=== PATIENT | female | born 1970 | race Caucasian/White ===

== ENCOUNTER 2019-08-17 11:48 | Emergency (ER) | payer OTHER, SELFPAY ==
[2019-08-17] VITALS (13 sets, daily range): BP systolic 124–147; BP diastolic 75–94; PULSE 62–79; RESP 12–23; TEMP 36.7; O2SAT 99–100
--- NOTE | ~2019-08-17 | XR_ITS ---
EXAMINATION: XR chest 2V DATE: 08/17/2019 13:02 INDICATION: Left chest pain. TECHNIQUE: Frontal and lateral views of the chest were obtained. COMPARISON: Chest 2 views 12/30/2015 FINDINGS: The chest demonstrates clear lungs without pneumonia, pleural effusion, or pneumothorax. Th e heart size is normal. Surgical clips in the right upper quadrant are likely from cholecystectomy. T here is a surgical clip in right axilla. IMPRESSION: 1. No acute cardiopulmonary disease. Reviewed, dictated and finalized at location A.
--- NOTE | 2019-08-17 11:58 | ECG_ITS ---
Measurements Intervals Adin Rate: 73 P: 22 IL: 134 QRS: 6 QRSD: 89 T: 30 QT: 391 QTc: 433 Interpretive Statements SINUS RHYTHM LOW QRS VOLTAGE IN PRECORDIAL LEADS BASELINE WANDER- V1-V3 BORDERLINE ECG Electronically Signed On 08-17-2019 12:00:47 CDT by Osmar Vizcaino D.O.
[2019-08-17] MEDS: ASPIRIN 81 MG CHEWABLE TABLET 324 MG PO (12:04)
--- NOTE | 2019-08-17 12:06 | ED.CHESTPAIN ---
HPI - Chest Pain General Chief Complaint: Chest Pain Stated Complaint: chest pain/epigastric pain Time Seen by Provider: 08/17/19 11:54 Source: patient Mode of arrival: ambulatory Limitations: no limitations History of Present Illness HPI narrative: This is a 49 year old female that presents to the ER for chest pain x 1 week. Reports intermittent squeezing like pain under the left rib. Reports today the pain became more constant. Associated with some mild nausea. Reports history of GERD, denies history of any heart problems. She was seen by her PCP today and sent here for further evaluation. Denies fever, shortness of breath, vomiting, diarrhea, or dysuria. Related Data Allergies Allergy/AdvReac Type Severity Reaction Status Date / Time metronidazole Allergy Intermediate Other Verified 08/17/19 12:06 meperidine Allergy Unknown Agitated Verified 08/17/19 12:06 Penicillins Allergy Unknown Rash Unverified 08/17/19 12:06 AMOXICILLIN TRIHYDRATE Allergy Mild RASH Uncoded 08/17/19 12:06 POTASSIUM CLAVULANATE Allergy Mild RASH Uncoded 08/17/19 12:06 Review of Systems Review of Systems: Narrative: CONSTITUTIONAL: Denies fever ENT: Denies congestion, sore throat CARDIOVASCULAR: Reports chest pain. Denies edema. RESPIRATORY: Denies cough or dyspnea. GASTROINTESTINAL: Reports abdominal pain, nausea. Denies vomiting, or diarrhea. GENITOURINARY: Denies dysuria or hematuria. All systems reviewed & are unremarkable except as noted in HPI and below PMFSH Past Medical History Medical History (Updated 08/17/19 @ 15:58 by Estefany Latif PA-C) Benign paroxysmal vertigo GERD without esophagitis Normal colonoscopy (~2014) Surgical History Surgical History (Updated 08/17/19 @ 12:18 by Dejah Siddiqui NP) History of cholecystectomy History of hysterectomy (~2006) History of tubal ligation (~2003) Family History Family History (Updated 06/29/16 @ 14:53 by DOCTOR UNKNOWN) Grandparent Hypertension Family history of elevated blood lipids Cerebrovascular accident Family history of malignant neoplasm of breast Family history of gout Family history of arthritis Family history of malignant neoplasm Family history of mental disorder Depression Family history of gastrointestinal disorder Family history of alcoholism Family history of liver disease Family history of lung cancer Diabetes mellitus Mother Hypertension Father Family history of liver disease Hypertension Family history of alcoholism Family history of chronic obstructive pulmonary disease Family history of emphysema Social History Social History Smoking status: Former smoker Second hand tobacco smoke exposure: No Smoking end date: 05/09/06 Alcohol intake: current Exam Narrative: Exam Narrative: GENERAL: Well-appearing, obese, and in no acute distress. HEAD: Normocephalic, atraumatic. EYES: EOMI. NECK: Supple. No adenopathy or masses. No carotid bruits or JVD CHEST: Clear to auscultation. No respiratory distress. No wheezes rales or rhonchi HEART: Regular rate and rhythm. No murmur heard. Normal peripheral pulses. ABDOMEN: Soft, nontender, nondistended, normal active bowel sounds. EXTREMITIES: Normal range of motion. No edema. SKIN: Warm, dry, no rash. NEURO: No focal deficits. Alert and oriented x3. PSYCH: Normal mood and affect Course Vital Signs Vital signs: Vital Signs Temperature 98.0 F 08/17/19 11:55 Pulse Rate 75 08/17/19 11:55 Respiratory Rate 20 08/17/19 11:55 Blood Pressure 147/94 H 08/17/19 11:55 Pulse Oximetry 100 08/17/19 11:55 Temperature 98.0 F 08/17/19 11:55 Pulse Rate 69 08/17/19 14:18 Respiratory Rate 18 08/17/19 14:18 Blood Pressure 126/78 08/17/19 12:47 Pulse Oximetry 100 08/17/19 14:18 MDM - Chest Pain MDM Narrative Medical decision making narrative: Patient presents to the ER for left sided chest/abdominal pain for the last week. Worse today. Patient reports relief
[2019-08-17 12:10] LABS: Basophils Absolute Auto 0.1 K/mm3 (0.0-0.1); Basophils Percent Auto 0.6 % (0.2-1.2); Eosinophils Absolute Auto 0.2 K/mm3 (0-0.3); Eosinophils Percent Auto 1.8 % (0-4.4); Hematocrit 41.5 % (37.0-47.0); Hemoglobin 13.3 g/dL (12.0-15.0); Immature Granulocyte Absolute 0.02 K/mm3 (0.00-0.031); Immature Granulocyte Percent A 0.2 % (0-0.5); Lymphocytes Absolute Auto 3.09 K/mm3 (0.9-3.2); Lymphocytes Percent Auto 36.7 % (18.3-44.2); Mean Corpuscular Hemoglobin 28.1 pg (26-34); Mean Corpuscular Volume 87.7 fl (80-100); Mean Platelet Volume 10.6 fl (7.4-10.4); Monocytes Absolute Auto 0.5 K/mm3 (0.1-0.6); Monocytes Percent Auto 6.1 % (2.6-8.5); Neutrophils Absolute Auto 4.6 K/mm3 (1.3-6.7); Neutrophils Percent Auto 54.6 % (45.5-73.1); Platelet Count Result 355 k/mm3 (150-375); Red Blood Count 4.73 M/mm3 (4.2-5.4); Red Cell Distribution Width 13.7 % (11.5-14.5); White Blood Count 8.4 K/mm3 (4.5-10.0)
[2019-08-17 12:21] LABS: Prothrombin Time 12.7 Seconds (11.1-14.7)
[2019-08-17] MEDS: FAMOTIDINE 20 MG/2 ML VIAL IV PUSH (12:35)
[2019-08-17] MEDS: ONDANSETRON INJ 4 MG/2 ML VIAL IV PUSH (12:35)
[2019-08-17 12:38] LABS: D Dimer 0.27 ug/mL (<0.48)
[2019-08-17 12:40] LABS: Alanine Aminotransferase 23 U/L (4-35); Albumin Level 4.5 g/dL (3.5-5.1); Alkaline Phosphatase 107 U/L (38-126); Aspartate Amino Transferase 31 U/L (14-36); Bilirubin,Total 0.5 mg/dL (0.2-1.3); Blood Urea Nitrogen 19 mg/dL (7-17); Calcium 9.5 mg/dL (8.4-10.2); Carbon Dioxide 27 mmol/L (22-30); Chloride 104 mmol/L (98-107); Estimated CRCL calculation 86 ml/min; Estimated Glomerular Filt Rate > 60; Glucose 91 mg/dL (65-105); Potassium 4.5 mmol/L (3.4-5.0); Sodium 137 mmol/L (137-145); Troponin I < 0.012 ng/mL (0.000-0.034)
[2019-08-17 13:08] LABS: NT Pro B Type Natriuretic Pept 90 PG/ML (5-100)
[2019-08-17 15:22] LABS: Troponin I < 0.012 ng/mL (0.000-0.034)
== END 2019-08-17 16:12 | disposition home or self-care (01) ==
PROVIDERS: Physician Assistant; Emergency Provider Emergency Medicine; PCP Family Medicine
DX: R07.89 Other chest pain (principal); R10.32 Left lower quadrant pain; K21.9 Gastro-esophageal reflux disease without esophagitis; Z87.891 Personal history of nicotine dependence; R94.31 Abnormal electrocardiogram [ECG] [EKG]
CPT/HCPCS: 36415; 71046; 80053; 83880; 84484; 85025; 85380; 85610; 85730; 93005; 96365; 96375; 99284; A9270; J0131; J2405

== ENCOUNTER 2020-02-04 12:37 | Emergency (ER) | payer OTHER, SELFPAY ==
--- NOTE | ~2020-02-04 | CT_ITS ---
EXAMINATION: CT abdomen pelvis w con DATE: 02/04/2020 14:46 INDICATION: Left lower quadrant abdominal pain. Nausea. TECHNIQUE: Computed tomography (CT) of the abdomen and pelvis was performed with 100 mL Omnipaque 350 intravenous contrast. Automated exposure control and iterative reconstruction technique were employe d. The dose-length product was 1191.10 mGy-cm. COMPARISON: CT abdomen and pelvis 02/28/2019 FINDINGS: The visualized portions of the lung bases are clear without pneumonia or pleural effusion. The heart size is normal. No pericardial effusion. The liver, spleen, pancreas, adrenal glands, and k idneys are normal. There are changes of cholecystectomy. There are scattered diverticula in the colon . There is fat stranding around a diverticulum of sigmoid colon with local wall thickening, consisten t with diverticulitis. There are no dilated loops of bowel. The appendix is normal. There are no path ologically enlarged lymph nodes. There is trace pelvic ascites. There is severe lower lumbar spondylo sis. IMPRESSION: 1. Acute sigmoid diverticulitis. No perforation or abscess. Reviewed, dictated and finalized at location A.
[2020-02-04 12:38] VITALS: BP 149/100; PULSE 93; RESP 14; TEMP 35.8; O2SAT 99
[2020-02-04 13:03] LABS: Basophils Absolute Auto 0.1 K/mm3 (0.0-0.1); Basophils Percent Auto 0.4 % (0.2-1.2); Eosinophils Absolute Auto 0.2 K/mm3 (0-0.3); Eosinophils Percent Auto 1.6 % (0-4.4); Hematocrit 39.3 % (37.0-47.0); Hemoglobin 12.8 g/dL (12.0-15.0); Immature Granulocyte Absolute 0.04 K/mm3 (0.00-0.031); Immature Granulocyte Percent A 0.3 % (0-0.5); Mean Corpuscular HGB Conc 32.6 g/dl (32-36); Mean Corpuscular Hemoglobin 29.2 pg (26-34); Mean Corpuscular Volume 89.7 fl (80-100); Mean Platelet Volume 11.1 fl (7.4-10.4); Monocytes Absolute Auto 0.7 K/mm3 (0.1-0.6); Neutrophils Absolute Auto 8.1 K/mm3 (1.3-6.7); Neutrophils Percent Auto 68.7 % (45.5-73.1); Platelet Count Result 321 k/mm3 (150-375); Red Blood Count 4.38 M/mm3 (4.2-5.4); Red Cell Distribution Width 13.8 % (11.5-14.5); White Blood Count 11.7 K/mm3 (4.5-10.0)
[2020-02-04 13:08] LABS: Potassium 3.7 mmol/L (3.4-5.0)
[2020-02-04 13:13] LABS: Alanine Aminotransferase 20 U/L (4-35); Albumin Level 4.4 g/dL (3.5-5.1); Alkaline Phosphatase 114 U/L (38-126); Anion Gap 9 mmol/L (8-16); Aspartate Amino Transferase 22 U/L (14-36); Bilirubin,Total 0.4 mg/dL (0.2-1.3); Blood Urea Nitrogen 15 mg/dL (7-17); Calcium 9.7 mg/dL (8.4-10.2); Carbon Dioxide 29 mmol/L (22-30); Chloride 102 mmol/L (98-107); Estimated CRCL calculation 84 ml/min; Estimated Glomerular Filt Rate > 60; Glucose 95 mg/dL (65-105); Lipase 115 U/L (23-300); Sodium 140 mmol/L (137-145)
[2020-02-04 13:17] LABS: Add Urine Microscopic? NO; Appearance Urine Clear (Clear); Bilirubin Urine Negative (Negative); Blood Urine Negative (Negative); Color Urine Yellow (Yellow); Glucose Urine UA Negative (Negative); Ketones Urine Negative (Negative); Leukocyte Esterase Ur Negative LEU/UL (Negative); Mucus Urine Rare /lpf; Nitrate Urine Negative (Negative); Protein Urine Negative (Negative); RBC Urine 0-2 /hpf (0-2); Specific Grav Ur 1.019 (1.001-1.035); Squamous Epithelial Cell Urine Rare /hpf (Few); Urobilinogen Urine Negative mg/dL (<2.0); WBC Urine 0-3 /hpf
--- NOTE | 2020-02-04 14:11 | ED.ABDPAIN ---
HPI - Abdominal Pain General Chief Complaint: Abdominal Pain <GLENNA Madrigal Last Filed: 02/04/20 15:37> Stated Complaint: left lower abd pain <GLENNA Madrigal Last Filed: 02/04/20 15:37> Time Seen by Provider: 02/04/20 13:57 <GLENNA Madrigal Last Filed: 02/04/20 15:37> Source: patient <GLENNA Madrigal Last Filed: 02/04/20 15:37> Mode of arrival: ambulatory <GLENNA Madrigal Last Filed: 02/04/20 15:37> Limitations: no limitations <GLENNA Madrigal Last Filed: 02/04/20 15:37> History of Present Illness HPI narrative: Patient presents to the emergency department for left lower quadrant abdominal pain x3 days. Reports the pain is intermittent and sharp. Also reports nausea. Reports she has history of ovarian cysts and this feels similar. 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 She has appointment to see her tomorrow. Her pain had worsened today which prompted her to be seen. Denies fever, vomiting, diarrhea, or dysuria. <GLENNA Madrigal Last Filed: 02/04/20 15:37> Related Data Home Medications: Home Medications Medication Instructions Recorded Confirmed omeprazole 20 mg capsule,delayed 40 mg PO BID cap 12/24/19 12/24/19 release <GLENNA Madrigal Last Filed: 02/04/20 15:37> Allergies/Adverse Reactions: Allergies Allergy/AdvReac Type Severity Reaction Status Date / Time metronidazole Allergy Intermediate Other Verified 12/24/19 13:36 meperidine Allergy Unknown Agitated Verified 12/24/19 13:36 Penicillins Allergy Unknown Rash Unverified 12/24/19 13:36 AMOXICILLIN TRIHYDRATE Allergy Mild RASH Uncoded 12/24/19 13:36 POTASSIUM CLAVULANATE Allergy Mild RASH Uncoded 12/24/19 13:36 <GLENNA Madrigal Last Filed: 02/04/20 15:37> Review of Systems Review of Systems: Narrative: CONSTITUTIONAL: Denies fever GASTROINTESTINAL: Reports abdominal pain, nausea. Denies vomiting, or diarrhea. GENITOURINARY: Denies dysuria or hematuria. <Estefany Latif PA-C - Last Filed: 02/04/20 15:37> All systems reviewed & are unremarkable except as noted in HPI and below <Estefany Latif PA-C - Last Filed: 02/04/20 15:37> PMFSH Past Medical History Medical History: Medical History (Updated 02/04/20 @ 15:36 by Estefany Latif PA-C) Benign paroxysmal vertigo GERD without esophagitis History of bleeding ulcers Normal colonoscopy (~2014) <Estefany Latif PA-C - Last Filed: 02/04/20 15:37> Social History Social History: Social History (Updated 09/24/19 @ 11:34 by Anu Negrete, ) Smoking status: Former smoker Second hand tobacco smoke exposure: No Smoking end date: 01/07/07 Alcohol intake: current Substance use: never Additional living arrangements comments: Boyfriend 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 HEAD: Normocephalic, atraumatic. EYES: EOMI. CHEST: Clear to auscultation. No respiratory distress. No wheezes rales or rhonchi HEART: Regular rate and rhythm. No murmur heard. Normal peripheral pulses. ABDOMEN: Soft, nondistended, normal active bowel sounds. Mild tenderness to palpation throughout the left lower abdomen, without guarding EXTREMITIES: Normal range of motion. No edema. SKIN: Warm, dry, no rash. NEURO: No focal deficits. Alert and oriented x3. PSYCH: Normal mood and affect <Estefany Latif PA-C - Last Filed: 02/04/20 15:37> Course Vital Signs Vital signs: Vital Signs Temperature 35.8 C L 02/04/20 12:38 Pulse Rate 93 02/04/20 12:38 Respiratory Rate 14 02/04/20 12:38 Blood Pressure 149/100 H 02/04/20 12:38 Pulse Oximetry 99 02/04/20
[2020-02-04] MEDS: MOXIFLOXACIN HCL 400 MG TABLET PO (15:23)
== END 2020-02-04 15:54 | disposition home or self-care (01) ==
PROVIDERS: Emergency Provider Emergency Medicine; PCP Family Medicine
DX: K57.32 Diverticulitis of large intestine without perforation or abscess without bleeding (principal); K21.9 Gastro-esophageal reflux disease without esophagitis; Z87.891 Personal history of nicotine dependence
CPT/HCPCS: 36415; 74177; 80053; 81003; 81025; 83690; 85025; 99284; A9270; Q9967

== ENCOUNTER 2020-03-21 01:57 | Outpatient (CLI) | payer OTHER, SELFPAY ==
[2020-03-21 19:52] LABS: SARS-CoV-2 RNA PCR Negative
== END 2020-03-21 01:58 | disposition home or self-care (01) ==
LOC: ANHCOVIDDT 01:57
PROVIDERS: PCP Family Medicine; Visit Provider Internal Medicine Gastroenterology
DX: Z01.812 Encounter for preprocedural laboratory examination (principal); Z20.828 Contact with and (suspected) exposure to other viral communicable diseases
CPT/HCPCS: 87635; C9803; U0003

== ENCOUNTER 2020-03-24 01:00 | Day surgery (SDC) | payer OTHER, SELFPAY ==
[2020-03-17 13:53] VITALS: BMI 34.8
[2020-03-24 10:51] VITALS: BP 135/82; PULSE 79; RESP 17; TEMP 36.6; O2SAT 100; BMI 35.2
[2020-03-24] MEDS: LACTATED RINGERS 1,000 ML 150 ML IV CONT (10:57)
--- NOTE | 2020-03-24 11:22 | WPDANESEPPF ---
Anes - Initial Pre Proc Eval Procedure: Operation Date: 03/24/20 12:00 Proposed Procedures p Esophagogastroduodenoscopy & Colonoscopy - Joe Loredo DO Date/Time: 03/24/20 11:22 Surgeon: Joe Loredo DO Pre Op Diagnosis: LLQ Pain/ Gerd Patient Data Age: 49 Gender: F Height: 5 ft 5 in Weight: 96.2 kg Last Vital Signs Temp 97.9 F 03/24/20 10:51 Pulse 79 03/24/20 10:51 Resp 17 03/24/20 10:51 BP 135/82 03/24/20 10:51 Pulse Ox 100 03/24/20 10:51 Allergies Allergy/AdvReac Type Severity Reaction Status Date / Time metronidazole Allergy Intermediate Other Verified 03/24/20 10:49 meperidine Allergy Unknown Agitated Verified 03/24/20 10:49 Penicillins Allergy Unknown Rash Unverified 03/24/20 10:49 AMOXICILLIN TRIHYDRATE Allergy Mild RASH Uncoded 03/24/20 10:49 POTASSIUM CLAVULANATE Allergy Mild RASH Uncoded 03/24/20 10:49 Home Medications Medication Instructions Recorded Confirmed Type omeprazole 20 mg capsule,delayed 40 mg PO BID cap 12/24/19 03/24/20 History release Patient hx anesthesia problems: none Family hx anesthesia problems: none PMFSH Past Medical History Medical History (Updated 02/05/20 @ 00:00 by Carlyn Young) Benign paroxysmal vertigo GERD without esophagitis History of bleeding ulcers Normal colonoscopy (~2014) Surgical History Surgical History History of cholecystectomy (~1999) History of hysterectomy (~2006) Dr. Hwang: History of tubal ligation (~2003) Family History Family History Grandparent Hypertension Family history of elevated blood lipids Cerebrovascular accident Family history of malignant neoplasm of breast Family history of gout Family history of arthritis Family history of malignant neoplasm Family history of mental disorder Depression Family history of gastrointestinal disorder Family history of alcoholism Family history of liver disease Family history of lung cancer Diabetes mellitus Mother Hypertension Father Family history of liver disease Hypertension Family history of alcoholism Family history of chronic obstructive pulmonary disease Family history of emphysema Social History Social History (Updated 09/24/19 @ 11:34 by Anu Negrete, ) Years smoked: 13 Smoking status: Former smoker Tobacco type: cigarettes Second hand tobacco smoke exposure: No Smoking end date: 01/07/07 Alcohol intake: current Drinks per week: 1 Substance use: never Substance use type: does not use Living arrangements: with family Additional living arrangements comments: Boyfriend 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 Gender identity (if verbalized by the patient): Female Spiritual care concerns: No Agree to blood products: Yes Anes - Eval Final PreProcedure Day of Procedure 03/24/20 11:22 Patient weight: obese Heart: regular rate and rhythm Lungs: clear to auscultation Airway: Mallampati scale class II Neurological: alert and oriented Last oral intake: >/= 8 hours ASA classification: II Emergent: no Anesthetic plan: proceed Anesthesia type and monitoring: general GIVS and standard monitoring Informed Consent: The patient's anesthetic plan and its attendant risks and benefits were discussed with the patient/family/POA. Questions were solicited and answers provided to the satisfaction of the patient/family/POA.
--- NOTE | 2020-03-24 13:02 | PM.IMHP ---
H&P: [facility] History of Present Illness Date/Time: 03/24/20 13:02 Chief complaint: LLQ Pain/ Gerd Narrative: Reason for visit EGD and colon. This very pleasant lady seen in consultation request of the primary physician. Impression: This very pleasant lady with recent left lower quadrant abdominal pain. She had underlying sigmoid diverticulitis. GERD with dysphagia. Evaluate for lying ring or stricture. Vertigo. Recommendation: EGD and colonoscopy. History: This very pleasant lady's being evaluated for left lower quadrant abdominal pain. She was recently in the emergency room back in January and was noted to have diverticulitis. She was treated. Patient continues to have episodes of left lower abdominal discomfort. Nausea, vomiting and hematemesis tonight. She has a history of reflux disease and is well controlled on medication. She does complain of dysphagia to solid foods at times. She has some epigastric abdominal discomfort after eating. She is here for EGD and colonoscopy. Physical examination: General: very pleasant patient in no acute distress. HEENT: Head was normocephalic sclerae is clear mouth without masses neck was supple. Heart: Rate rhythm regular without S3 or S4. Lungs: CTA. Abdomen: Soft with no guarding or rigidity. Bowel sounds were active. Neurologic: Cranial nerves 2 through 12 intact. No focal defects. No clonus. Musculoskeletal system: Revealed no joint tenderness or swelling no muscle atrophy. Extremities: Reveal no significant edema. Skin: Warm and dry with normal turgor. Mental status: intact. Patient is alert and oriented. Review of Systems Review of Systems: All systems reviewed & are unremarkable except as noted in HPI and below [facility] Past Medical History Medical History (Updated 02/05/20 @ 00:00 by [employer]) Benign paroxysmal vertigo GERD without esophagitis History of bleeding ulcers Normal colonoscopy (~2014) Surgical History Surgical History History of cholecystectomy (~1999) History of hysterectomy (~2006) Dr. Hwang: History of tubal ligation (~2003) Family History Family History Grandparent Hypertension Family history of elevated blood lipids Cerebrovascular accident Family history of malignant neoplasm of breast Family history of gout Family history of arthritis Family history of malignant neoplasm Family history of mental disorder Depression Family history of gastrointestinal disorder Family history of alcoholism Family history of liver disease Family history of lung cancer Diabetes mellitus Mother Hypertension Father Family history of liver disease Hypertension Family history of alcoholism Family history of chronic obstructive pulmonary disease Family history of emphysema Social History Social History (Updated 09/24/19 @ 11:34 by Anu Negrete, ) Years smoked: 13 Smoking status: Former smoker Tobacco type: cigarettes Second hand tobacco smoke exposure: No Smoking end date: 01/07/07 Alcohol intake: current Drinks per week: 1 Substance use: never Substance use type: does not use Living arrangements: with family Additional living arrangements comments: Boyfriend 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
[2020-03-24 13:36] VITALS: BP 123/78; PULSE 70; RESP 16; O2SAT 98
[2020-03-24 13:46] VITALS: BP 118/56; PULSE 72; RESP 18; O2SAT 100
[2020-03-24 13:56] VITALS: BP 122/73; PULSE 66; RESP 20; O2SAT 100
== END 2020-03-24 14:04 | disposition home or self-care (01) ==
PROVIDERS: PCP Family Medicine; Visit Provider Internal Medicine Gastroenterology
PROC: 0DJ08ZZ Inspection of Upper Intestinal Tract, Via Natural or Artificial Opening Endoscopic (ICD-10-PCS; CPT 43235; principal; 2020-03-24 12:00)
DX: R10.32 Left lower quadrant pain (principal); K57.30 Diverticulosis of large intestine without perforation or abscess without bleeding; Z87.19 Personal history of other diseases of the digestive system; K21.9 Gastro-esophageal reflux disease without esophagitis; R13.10 Dysphagia, unspecified; Z87.891 Personal history of nicotine dependence
CPT/HCPCS: 43239; 45378; 87081; 88305; J2704; J7120

== ENCOUNTER 2020-07-12 07:58 | Outpatient (CLI) | payer OTHER, SELFPAY ==
--- NOTE | ~2020-07-12 | MM_ITS ---
EXAMINATION: MM screening [facility] BI w tj HISTORY: Screening mammogram TECHNIQUE: Craniocaudal and mediolateral oblique 3-D tomosynthesis images were obtained and synthetic 2-D images were generated. CAD analysis was submitted and interpreted. COMPARISON: 12/30/2018, 02/05/2017 BREAST PARENCHYMAL COMPOSITION: The breasts are almost entirely fatty. FINDINGS: An intramammary lymph node is noted in the upper outer quadrant of the left breast. There i s no evidence of suspicious mass, calcification, or architectural distortion to suggest malignancy in either breast. There has been no suspicious interval change. IMPRESSION: 1. No mammographic evidence of malignancy. 2. Recommend routine screening mammography in one year. BI-RADS Category 2: Benign finding(s). Reviewed, dictated and finalized at location A. TH AND SAFETY TECH
== END 2020-07-12 07:59 | disposition home or self-care (01) ==
LOC: ANHIMG 08:01
PROVIDERS: PCP Nurse Practitioner Family; Visit Provider Obstetrics & Gynecology
DX: Z12.31 Encounter for screening mammogram for malignant neoplasm of breast (principal)
CPT/HCPCS: 77063; 77067

== ENCOUNTER 2020-07-16 06:41 | Outpatient (CLI) | payer OTHER, SELFPAY ==
[2020-07-16 07:31] LABS: Basophils Percent Auto 0.5 % (0.2-1.2); Eosinophils Absolute Auto 0.1 K/mm3 (0-0.3); Eosinophils Percent Auto 1.9 % (0-4.4); Hematocrit 41.6 % (37.0-47.0); Hemoglobin 13.2 g/dL (12.0-15.0); Immature Granulocyte Absolute 0.03 K/mm3 (0.00-0.031); Immature Granulocyte Percent A 0.4 % (0-0.5); Lymphocytes Absolute Auto 2.34 K/mm3 (0.9-3.2); Lymphocytes Percent Auto 31.6 % (18.3-44.2); Mean Corpuscular HGB Conc 31.7 g/dl (32-36); Mean Corpuscular Hemoglobin 28.3 pg (26-34); Mean Corpuscular Volume 89.3 fl (80-100); Mean Platelet Volume 10.7 fl (7.4-10.4); Monocytes Absolute Auto 0.5 K/mm3 (0.1-0.6); Monocytes Percent Auto 6.5 % (2.6-8.5); Neutrophils Absolute Auto 4.4 K/mm3 (1.3-6.7); Neutrophils Percent Auto 59.1 % (45.5-73.1); Platelet Count Result 341 k/mm3 (150-375); Red Blood Count 4.66 M/mm3 (4.2-5.4); White Blood Count 7.4 K/mm3 (4.5-10.0)
[2020-07-16 07:44] LABS: Potassium 4.5 mmol/L (3.4-5.0)
[2020-07-16 07:45] LABS: Alanine Aminotransferase 19 U/L (4-35); Albumin Level 4.2 g/dL (3.5-5.1); Alkaline Phosphatase 98 U/L (38-126); Anion Gap 5 mmol/L (8-16); Aspartate Amino Transferase 23 U/L (14-36); Bilirubin,Total 0.5 mg/dL (0.2-1.3); Blood Urea Nitrogen 20 mg/dL (7-17); Carbon Dioxide 31 mmol/L (22-30); Chloride 104 mmol/L (98-107); Cholesterol 235 mg/dL (0-200); Estimated Glomerular Filt Rate > 60; Glucose 107 mg/dL (65-105); HDL Direct 72 mg/dL; Sodium 140 mmol/L (137-145); Triglycerides 79 mg/dL (<150)
[2020-07-16 07:55] LABS: LDL Cholesterol Direct 120 mg/dL
[2020-07-16 08:12] LABS: Thyroid Stimulating Hormone 0.849 uIU/mL (0.465-4.680)
== END 2020-07-16 06:42 | disposition home or self-care (01) ==
PROVIDERS: PCP Nurse Practitioner Family
DX: Z00.00 Encounter for general adult medical examination without abnormal findings (principal)
CPT/HCPCS: 36415; 80053; 80061; 84443; 85025

== ENCOUNTER 2021-07-11 06:56 | Outpatient (CLI) | payer OTHER, SELFPAY ==
[2021-07-11 07:35] LABS: Alanine Aminotransferase 38 U/L (4-35); Albumin Level 4.4 g/dL (3.5-5.1); Alkaline Phosphatase 100 U/L (38-126); Anion Gap 6 mmol/L (8-16); Aspartate Amino Transferase 33 U/L (14-36); Bilirubin,Total 0.4 mg/dL (0.2-1.3); Blood Urea Nitrogen 26 mg/dL (7-17); Calcium 9.2 mg/dL (8.4-10.2); Carbon Dioxide 27 mmol/L (22-30); Chloride 105 mmol/L (98-107); Cholesterol 238 mg/dL (0-200); Estimated Glomerular Filt Rate > 60; Glucose 107 mg/dL (65-110); HDL Direct 62 mg/dL; Potassium 4.2 mmol/L (3.4-5.0); Sodium 138 mmol/L (137-145); Triglycerides 77 mg/dL (<150)
[2021-07-11 07:46] LABS: LDL Cholesterol Direct 122 mg/dL
[2021-07-11 08:13] LABS: Basophils Percent Auto 0.5 % (0.2-1.2); Eosinophils Absolute Auto 0.1 K/mm3 (0-0.3); Eosinophils Percent Auto 1.4 % (0-4.4); Hemoglobin 13.1 g/dL (12.0-15.0); Immature Granulocyte Absolute 0.03 K/mm3 (0.00-0.031); Immature Granulocyte Percent A 0.4 % (0-0.5); Lymphocytes Absolute Auto 2.59 K/mm3 (0.9-3.2); Lymphocytes Percent Auto 33.2 % (18.3-44.2); Mean Corpuscular HGB Conc 31.2 g/dl (32-36); Mean Corpuscular Hemoglobin 28.4 pg (26-34); Mean Corpuscular Volume 90.9 fl (80-100); Mean Platelet Volume 11.3 fl (7.4-10.4); Monocytes Absolute Auto 0.5 K/mm3 (0.1-0.6); Monocytes Percent Auto 6.9 % (2.6-8.5); Neutrophils Absolute Auto 4.5 K/mm3 (1.3-6.7); Neutrophils Percent Auto 57.6 % (45.5-73.1); Platelet Count Result 387 k/mm3 (150-375); Red Blood Count 4.62 M/mm3 (4.2-5.4); Red Cell Distribution Width 14.2 % (11.5-14.5); White Blood Count 7.8 K/mm3 (4.5-10.0)
== END 2021-07-11 06:57 | disposition home or self-care (01) ==
PROVIDERS: PCP Family Medicine; Visit Provider Family Medicine
DX: E78.5 Hyperlipidemia, unspecified (principal); Z68.37 Body mass index [BMI] 37.0-37.9, adult; R06.81 Apnea, not elsewhere classified
CPT/HCPCS: 36415; 80053; 80061; 85025

== ENCOUNTER 2021-08-08 08:14 | Outpatient (CLI) | payer OTHER, SELFPAY ==
--- NOTE | ~2021-08-08 | MM_ITS ---
EXAMINATION: MM screening [facility] BI w tj HISTORY: Screening TECHNIQUE: Craniocaudal and mediolateral oblique 3-D tomosynthesis images were obtained and synthetic 2-D images were generated. CAD analysis was submitted and interpreted. COMPARISON: Comparison to multiple prior studies sequentially, with oldest reviewed study dated 08/25. BREAST PARENCHYMAL COMPOSITION: The breasts are almost entirely fatty. FINDINGS: There is no evidence of suspicious mass, calcification, or architectural distortion to sugg est malignancy in either breast. There has been no suspicious interval change. IMPRESSION: 1. No mammographic evidence of malignancy. 2. Recommend routine screening mammography in one year. BI-RADS Category 1: Negative Reviewed, dictated and finalized at location A.
== END 2021-08-08 08:15 | disposition home or self-care (01) ==
PROVIDERS: PCP Family Medicine; Visit Provider Family Medicine
DX: Z12.31 Encounter for screening mammogram for malignant neoplasm of breast (principal)
CPT/HCPCS: 77063; 77067

== ENCOUNTER 2021-08-24 16:05 | Outpatient (RCR) | payer OTHER, SELFPAY ==
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
--- NOTE | 2021-08-31 07:09 | PCPTNOTE ---
Admitting Provider: Attending Provider: Sha Hartman, Patient:Nanette Mcpherson Date of :1970 Physical Therapy Discharge Note Patient called on 08/29/21 to cancel her remaining therapy visits. She was seen for her initial evaluation only on 08/24/2021. Her goals have not been met due to seen for evaluation only. [facility]. Please review, sign, date and return this discharge summary HELEN. I have been updated about the patient's current status and I agree with discharge from the above service at this time. Referring Physician Date
== END 2021-08-31 08:42 | disposition home or self-care (01) ==
LOC: ANHPT 16:05
PROVIDERS: PCP Family Medicine; Referring Provider Family Medicine; Visit Provider Family Medicine
DX: M25.562 Pain in left knee (principal); G89.29 Other chronic pain
CPT/HCPCS: 97110; 97161

== ENCOUNTER 2021-10-09 07:49 | Outpatient (CLI) | payer OTHER, SELFPAY ==
--- NOTE | 2021-10-20 13:00 | WPDHOMESLEEP ---
Sleep Study - Home Unattended Date of Study: 10/09/21 Ordering Provider: Leonidas Garcia APRN Interpreting Provider: Elizabeth Whyte, DO Home Sleep Study Type: Watch PAT Height: 1.65 m Weight: 102.058 kg Body Mass Index: 37.4 Neck Circumference (inches): 15 Leon: 15 Reason for Sleep Study Unrefreshing sleep, daytime hypersomnia Sleep History The patient is a 51-year-old female with vertigo, GERD, and obesity that had a sleep study ordered by the pulmonary office for evaluation of sleep apnea. The patient was previously evaluated by neurology for brain fog and word finding difficulty. The patient occasionally awakens from sleep short of breath. She frequently awakens at night with heartburn, belching or cough. She frequently snores and it is occasionally loud enough that others complain. She frequently has trouble sleeping when she has a cold. She occasionally wakes up gasping for air throughout the night. She occasionally has breathing problems at night observed by herself or others. She frequently sweats excessively at night. She denies having heart palpitations or irregular heartbeats during the night. She occasionally falls asleep during the day but never falls asleep while driving. She denies cataplexy. She occasionally has trouble at school or work due to sleepiness. She occasionally feels unable to move when waking up or falling asleep. She occasionally experiences vivid dreamlike scenes upon awakening or falling asleep. She occasionally has nightmares and occasionally remembers her dreams. She frequently has thoughts racing through her mind. She denies feeling sad or depressed. She frequently has anxiety. She frequently has muscular tension. She frequently notices parts of her body jerk. She frequently kicks during the night. She frequently has crawling and aching feelings in her legs as well as leg pain during the night. She denies grinding her teeth during sleep and awakening with morning jaw pain. She is frequently bothered by pain during the day and frequently awakened by pain during the night. She frequently wakes up feeling stiff in the morning. She frequently wakes up with sore achy muscles. She frequently wakes up with pain in the neck, spine and other joints. She goes to bed between 8:30-9:00 p.m. on weekdays and weekends. she can either fall asleep immediately or take up to 3 hours. She wakes up 3-7 times throughout the night. When she awakens she will use the restroom and pray. She can fall back asleep within 20 minutes. She wakes up at 5:00 a.m. on both weekdays and weekends. She typically gets 4-6 hours of sleep per night. She will occasionally stay in bed for 30-45 minutes after waking up in the morning. She currently lives with her . She does not consume any caffeinated beverages within 2 hours of bedtime. She does not engage in physical exercise before bedtime. She will watch television before falling asleep. She denies taking naps in the afternoon or the evening. She drinks 4-5 caffeinated beverages per day. She will drink 1-2 alcoholic beverages per month. She quit smoking cigarettes in January 2007. She denies recreational drug use. [facility] Past Medical History Medical History Benign paroxysmal vertigo GERD without esophagitis History of bleeding ulcers Normal colonoscopy (~2014) Surgical History Surgical History History of cholecystectomy (~1999) History of hysterectomy (~2006) Dr. Hwang: History of tubal ligation (~2003) Family History Family History Grandparent Hypertension Family history of elevated blood lipids Cerebrovascular accident Family history of malignant neoplasm of breast Family history of gout Family history of arthritis Family history of malignant neoplasm Family history
[2021-10-20 13:02] VITALS: BMI 37.4
== END 2021-10-12 11:10 | disposition home or self-care (01) ==
LOC: ANHCSM 07:49
PROVIDERS: PCP Family Medicine; Visit Provider Nurse Practitioner Family
DX: G47.10 Hypersomnia, unspecified (principal); G47.33 Obstructive sleep apnea (adult) (pediatric)
CPT/HCPCS: 95800

== ENCOUNTER 2021-11-28 07:01 | Outpatient (CLI) | payer OTHER, SELFPAY ==
[2021-11-28 08:09] LABS: Hemoglobin A1C 5.4 % (<5.7)
[2021-11-28 08:10] LABS: Alanine Aminotransferase 23 U/L (6-35); Albumin Level 4.2 g/dL (3.5-5.1); Alkaline Phosphatase 87 U/L (38-126); Anion Gap 6 mmol/L (8-16); Aspartate Amino Transferase 22 U/L (14-36); Bilirubin,Total 0.4 mg/dL (0.2-1.3); Blood Urea Nitrogen 19 mg/dL (7-17); Calcium 9.1 mg/dL (8.4-10.2); Carbon Dioxide 27 mmol/L (22-30); Chloride 107 mmol/L (98-107); Estimated Glomerular Filt Rate > 60; Glucose 99 mg/dL (65-110); Potassium 4.2 mmol/L (3.4-5.0); Sodium 140 mmol/L (137-145)
== END 2021-11-28 07:02 | disposition home or self-care (01) ==
PROVIDERS: PCP Family Medicine; Visit Provider Nurse Practitioner Family
DX: R73.01 Impaired fasting glucose (principal); G25.81 Restless legs syndrome
CPT/HCPCS: 36415; 80053; 82728; 83036

== ENCOUNTER 2022-03-24 10:37 | Outpatient (CLI) | payer OTHER, SELFPAY ==
[2022-03-24 11:39] LABS: Appearance Urine Clear (Clear); Bilirubin Urine Negative (Negative); Blood Urine Negative (Negative); Color Urine Yellow (Yellow); Glucose Urine UA Negative (Negative); Ketones Urine Negative (Negative); Leukocyte Esterase Ur Negative LEU/UL (NEGATIVE); Nitrate Urine Negative (Negative); Protein Urine Negative (Negative); Urobilinogen Urine 0.2 mg/dL (<2.0)
[2022-03-24 11:52] LABS: Add Urine Microscopic? NO
== END 2022-03-24 10:38 | disposition home or self-care (01) ==
PROVIDERS: PCP Family Medicine; Visit Provider Obstetrics & Gynecology
DX: R39.9 Unspecified symptoms and signs involving the genitourinary system (principal)
CPT/HCPCS: 81003; 87086

== ENCOUNTER 2022-08-19 16:09 | Outpatient (CLI) | payer OTHER, SELFPAY ==
[2022-08-23 19:16] LABS: H pylori, Urea Breath NOT DETECTED (NOT DETECTED)
== END 2022-08-19 16:10 | disposition home or self-care (01) ==
LOC: ANHLAB 16:13
PROVIDERS: PCP Family Medicine; Visit Provider Family Medicine
DX: K21.9 Gastro-esophageal reflux disease without esophagitis (principal)
CPT/HCPCS: 83013

== ENCOUNTER 2022-10-08 06:40 | Outpatient (CLI) | payer OTHER, SELFPAY ==
[2022-10-08 08:10] LABS: Basophils Absolute Auto 0.1 K/mm3 (0.0-0.1); Basophils Percent Auto 0.7 % (0.2-1.2); Eosinophils Absolute Auto 0.3 K/mm3 (0-0.3); Eosinophils Percent Auto 3.6 % (0-4.4); Hematocrit 40.6 % (37.0-47.0); Immature Granulocyte Absolute 0.04 K/mm3 (0.00-0.031); Immature Granulocyte Percent A 0.5 % (0-0.5); Lymphocytes Absolute Auto 2.47 K/mm3 (0.9-3.2); Lymphocytes Percent Auto 32.7 % (18.3-44.2); Mean Corpuscular Hemoglobin 28.7 pg (26-34); Mean Corpuscular Volume 89.6 fl (80-100); Mean Platelet Volume 11.9 fl (7.4-10.4); Monocytes Absolute Auto 0.5 K/mm3 (0.1-0.6); Monocytes Percent Auto 6.8 % (2.6-8.5); Neutrophils Absolute Auto 4.2 K/mm3 (1.3-6.7); Neutrophils Percent Auto 55.7 % (45.5-73.1); Platelet Count Result 332 k/mm3 (150-375); Red Blood Count 4.53 M/mm3 (4.2-5.4); Red Cell Distribution Width 13.9 % (11.5-14.5); White Blood Count 7.6 K/mm3 (4.5-10.0)
[2022-10-08 08:25] LABS: Alanine Aminotransferase 28 U/L (6-35); Albumin Level 4.3 g/dL (3.5-5.1); Alkaline Phosphatase 80 U/L (38-126); Anion Gap 8 mmol/L (8-16); Aspartate Amino Transferase 27 U/L (14-36); Bilirubin,Total 0.7 mg/dL (0.2-1.3); Blood Urea Nitrogen 18 mg/dL (7-17); Calcium 9.5 mg/dL (8.4-10.2); Carbon Dioxide 27 mmol/L (22-30); Chloride 103 mmol/L (98-107); Cholesterol 229 mg/dL (0-200); Estimated Glomerular Filt Rate > 60; Glucose 90 mg/dL (65-110); HDL Direct 64 mg/dL; Potassium 4.3 mmol/L (3.4-5.0); Sodium 138 mmol/L (137-145); Triglycerides 86 mg/dL (<150)
[2022-10-08 08:35] LABS: LDL Cholesterol Direct 122 mg/dL
[2022-10-08 08:52] LABS: Thyroid Stimulating Hormone 0.869 uIU/mL (0.465-4.680)
== END 2022-10-08 06:41 | disposition home or self-care (01) ==
PROVIDERS: PCP Family Medicine; Visit Provider Family Medicine
DX: Z00.00 Encounter for general adult medical examination without abnormal findings (principal)
CPT/HCPCS: 36415; 80053; 80061; 84443; 85025

== ENCOUNTER 2022-12-06 16:18 | Outpatient (CLI) | payer OTHER, SELFPAY ==
--- NOTE | ~2022-12-06 | XR_ITS ---
EXAMINATION: XR wrist LT min 3V DATE: 12/06/2022 16:31 INDICATION: Left wrist pain and swelling. TECHNIQUE: 4 views of left wrist were obtained. COMPARISON: Left wrist radiographs 01/20/2011 FINDINGS: Bone alignment is normal. No fracture. There is mild osteoarthritis of triscaphe joint, fir st carpometacarpal joint, and first interphalangeal joint. IMPRESSION: 1. Mild polyarticular osteoarthritis. Reviewed, dictated and finalized at location A.
== END 2022-12-06 16:19 | disposition home or self-care (01) ==
LOC: ANHIMG 16:22
PROVIDERS: PCP Family Medicine; Visit Provider Family Medicine
DX: M25.432 Effusion, left wrist (principal); M19.032 Primary osteoarthritis, left wrist
CPT/HCPCS: 73110

== ENCOUNTER 2023-07-09 06:57 | Outpatient (CLI) | payer OTHER, SELFPAY ==
[2023-07-09 08:26] LABS: Cholesterol 234 mg/dL (0-200); HDL Direct 76 mg/dL; Triglycerides 74 mg/dL (<150)
[2023-07-09 08:37] LABS: LDL Cholesterol Direct 122 mg/dL
== END 2023-07-09 06:58 | disposition home or self-care (01) ==
PROVIDERS: PCP Family Medicine; Visit Provider Family Medicine
DX: E78.5 Hyperlipidemia, unspecified (principal)
CPT/HCPCS: 36415; 80061

== ENCOUNTER 2023-09-10 12:25 | Outpatient (CLI) | payer OTHER, SELFPAY ==
--- NOTE | ~2023-09-10 | CT_ITS ---
EXAMINATION: CT abdomen pelvis wo con DATE: 09/10/2023 12:47 INDICATION: Abdominal pain. TECHNIQUE: Computed tomography (CT) of the abdomen and pelvis was performed without intravenous contr ast. Automated exposure control and iterative reconstruction technique were employed. The dose-length product was 1195.34 mGy-cm. COMPARISON: CT abdomen and pelvis 02/04/2020 FINDINGS: The visualized portions of the lung bases demonstrate minimal atelectasis. No pleural effus ion. The heart size is normal. No pericardial effusion. The liver is normal. There are changes of cho lecystectomy. The spleen, pancreas, adrenal glands, and kidneys are normal. There is no urolithiasis. There is diverticulosis of the colon without evidence of diverticulitis. There are no dilated loops of bowel. The appendix is normal. There are no pathologically enlarged lymph nodes. There is no free intraperitoneal fluid. There is mild thoracic spondylosis. There is severe lower lumbar spondylosis. IMPRESSION: 1. No specific etiology for the patient's symptoms. Reviewed, dictated and finalized at location A.
== END 2023-09-10 12:26 | disposition home or self-care (01) ==
LOC: ANHIMG 12:29
PROVIDERS: PCP Family Medicine; Visit Provider Family Medicine
DX: R10.9 Unspecified abdominal pain (principal)
CPT/HCPCS: 74176